=== PATIENT | male | born 1995 | race Caucasian/White ===

== ENCOUNTER 2017-05-11 12:01 | Emergency (ER) | payer OTHER ==
[2017-05-11] MEDS ORDERED: Morphine INJ* 4 MG/ML 1 ML CARPUJECT IV ONE (13:03)
[2017-05-11] MEDS ORDERED: Ondansetron INJ* 2 MG/ML VIAL IV ONE (13:03)
[2017-05-11] MEDS ORDERED: HYDROcodone/ACETAMIN 5-325 MG* 1 TAB PO ONE (13:28)
[2017-05-11] MEDS ORDERED: Ibuprofen TAB* 400 MG PO ONE (13:28)
--- NOTE | 2017-05-11 14:00 | RAD ---
HISTORY: Right shoulder pain, trauma COMPARISONS: None VIEWS: 4, Frontal internal rotation, external rotation, outlet, and axillary views of the right shoulder FINDINGS: BONE DENSITY: Normal. BONES: There is no displaced fracture. JOINTS: There is no arthropathy. ALIGNMENT: There is anterior-inferior dislocation of the right humerus with respect to the glenoid fossa. SOFT TISSUES: Unremarkable. OTHER FINDINGS: None. IMPRESSION: RIGHT SHOULDER DISLOCATION
--- NOTE | 2017-05-11 14:40 | RAD ---
Indication: Right shoulder dislocation postreduction. 2 views of the right shoulder demonstrates reduction of previously identified anterior inferior dislocation. IMPRESSION: Reduction of previously identified dislocation.
[2017-05-11 15:34] VITALS: BP 144/71
--- NOTE | 2017-05-14 16:03 | ED ---
Alonzo Pascal Gabriel scribed for Basil Neri MD on 05/11/17 at 1307 . Upper Extremity Pain - HPI Summary HPI Summary: This patient is a 21 year old M presenting to [facility] with a chief complaint of a dislocated right shoulder s/p fall that occurred an hour ago. Patient states he slipped on ice and fell on his right hand. The patient rates the pain 10/10 in severity and describes it as radiating down his right arm. Patient denies back pain and neck pain. Patient has dislocated the same shoulder a year ago and had his friend reset it. Following this he went to the hospital and they took an xray which revealed that the shoulder was no longer dislocated. NKDA - History of Current Complaint Chief Complaint: EDExtremityUpper Stated Complaint: RT SHOULDER INJURY Hx Obtained From: Patient Mechanism Of Injury: Fall From A Standing Position Onset/Duration: Started Hours Ago - 1 Timing: Constant Severity Initially: Severe Severity Currently: Severe Pain Location: Shoulder - left Aggravating Factor(s): Movement, Lifting, Flexion Associated Signs & Symptoms: Negative: Weakness, Numbness/Tingling, Back Pain, Neck Pain - Allergies/Home Medications Allergies/Adverse Reactions: Allergies Allergy/AdvReac Type Severity Reaction Status Date / Time No Known Allergies Allergy Verified 05/11/17 12:36 PMH/Surg Hx/FS Hx/Imm Hx Previously Healthy: Yes Endocrine/Hematology History: Denies: Hx Blood Disorders, Hx Blood Transfusions, Hx Bone Marrow Disease, Hx Diabetes Cardiovascular History: Denies: Hx Angioplasty, Hx Atrial Fibrillation, Hx Congestive Heart Failure Respiratory History: Denies: Hx Asthma, Hx Chronic Bronchitis, Hx Chronic Obstructive Pulmonary Disease (COPD) Infectious Disease History: No Infectious Disease History: Reports: Traveled Outside the [place] in Last 30 Days - Family History Known Family History: Negative: Diabetes, Renal Disease, Respiratory Disease, Seizure Disorder - Social History Occupation: Student Lives: Dormitory/Roommates Alcohol Use: Occasionally Substance Use Type: Reports: None Smoking Status (MU): Never Smoked Tobacco Review of Systems Negative: Fever, Chills Negative: Erythema Negative: Sore Throat Negative: Chest Pain Negative: Shortness Of Breath, Cough Negative: Abdominal Pain, Vomiting, Nausea Negative: dysuria, hematuria Musculoskeletal: Negative - neck and back pain Positive: Other - pain at right shoulder down into right arm . Negative: Myalgia, Edema Negative: Rash Neurological: Negative - dizziness All Other Systems Reviewed And Are Negative: Yes Physical Exam - Summary Physical Exam Summary: Constitutional: Well-developed, Well-nourished, Alert. (-) Distressed Skin: Warm, Dry HENT: Normocephalic; Atraumatic Eyes: Conjunctiva normal Neck: Musculoskeletal ROM normal neck. (-) JVD, (-) Stridor, (-) Tracheal deviation Cardio: Rhythm regular, rate normal, Heart sounds normal; Intact distal pulses; The pedal pulses are 2+ and symmetric. Radial pulses are 2+ and symmetric. (-) Murmur Pulmonary/Chest wall: Effort normal. (-) Respiratory distress, (-) Wheezes, (-) Rales Abd: Soft, (-) Tenderness, (-) Distension, (-) Guarding, (-) Rebound Musculoskeletal: (-) Edema, Loss of deltoid prominent, distal pulses intact, drug safety coordinator strength intact. Lymph: (-) Cervical adenopathy Neuro: Alert, Oriented x3 Psych: Mood and affect Normal Triage Information Reviewed: Yes Vital Signs On Initial Exam: Initial Vitals Temp Pulse Resp BP Pulse Ox 98.1 F 69 22 154/81 99 05/11/17 12:25 05/11/17 12:25 05/11/17 12:25 05/11/17 12:25 05/11/17 12:25 Vital Signs Reviewed: Yes Procedures - Joint Reduction Joint Reduction Site: shoulder (R) Conscious Sedation: No Reduction Attempts: 1 Pre-Procedure NV Exam: Yes Post Joint Reduction Film: joint reduced Diagnostics - Vital Signs Vital Signs Temp Pulse Resp BP Pulse Ox 05/11/17 12:25 98.1 F 69 22 154/81 99 - Laboratory Lab Statement: Any lab studies that have been ordered have been reviewed, and results considered in the medical decision making process. - Radiology Shoulder Xray Radiology Interpretation Completed By: Radiologist - RIGHT SHOULDER DISLOCATION ED physician has reviewed this radiology report. Shoulder Xray 2 Radiology Interpretation Completed By: Radiologist - Reduction of previously identified dislocation. ED physician has reviewed this radiology report. Course/Dx - Course Assessment/Plan: This patient is a 21 year old M presenting to [facility] with a chief complaint of a dislocated right shoulder s/p fall that occurred an hour ago. Patient states he slipped on ice and fell on his right hand. The patient rates the pain 10/10 in severity and describes it as radiating down his right arm. Patient denies back pain and neck pain. Patient has dislocated the same shoulder a year ago and had his friend reset it. Following this he went to the hospital and they took an xray which revealed that the shoulder was no longer dislocated. NKDA. Shoulder XR reveals, per radiologist, RIGHT SHOULDER DISLOCATION. Shoulder XR 2 reveals, per radiologist, Reduction of previously identified dislocation. Patient denied pain medication and reduction was performed and successful. Patient will be discharged and follow up from ortho. Patient was advised not use that shoulder until cleared by ortho. The patient is agreeable with this plan. - Diagnoses Provider Diagnoses: Shoulder dislocation Discharge - Discharge Plan Condition: Stable Disposition: HOME Patient Education Materials: Shoulder Dislocation (ED) Forms: *Gen. Provider Communication Referrals: [facility] - Aurelio PUTNAM [Primary Care Provider] - 2 Days Kemal Brian MD [Medical Doctor] - 2 Days Additional Instructions: RETURN TO THE EMERGENCY DEPARTMENT FOR CHANGING OR WORSENING SYMPTOMS. The documentation as recorded by the Alonzo abarca Gabriel accurately reflects the service I personally performed and the decisions made by , Basil Neri MD.
== END 2017-05-11 15:33 | disposition home or self-care (01) ==
LOC: ED 12:01
DX: S43.004A Unspecified dislocation of right shoulder joint, initial encounter (principal); W19.XXXA Unspecified fall, initial encounter; Y92.9 Unspecified place or not applicable
CPT/HCPCS: 96374; 96375; 99282; J2270; J2405